=== PATIENT | male | born 1930 | race Caucasian/White ===

== ENCOUNTER 2017-06-16 13:18 | Emergency (ER) | payer MEDICARE, OTHER ==
[2017-06-16] MEDS ORDERED: Haloperidol 1 MG Tab PO ONE (13:59)
[2017-06-16] MEDS ORDERED: LORazepam 1 MG Tab PO ONE (14:01)
[2017-06-16] MEDS ORDERED: Haloperidol Lactate 5 MG/ML SDV IM ONE ×2 (14:04→18:48)
[2017-06-16] MEDS ORDERED: diphenhydrAMINE 50 MG/ML SDV IM ONE (14:05)
[2017-06-16] MEDS ORDERED: LORazepam 2 MG/ML MDV IVPUSH ONE ×2 (14:05→17:35)
[2017-06-16] MEDS ORDERED: Haloperidol Lactate 5 MG/ML SDV ONE (14:06)
[2017-06-16] MEDS ORDERED: diphenhydrAMINE 50 MG/ML SDV ONE (14:06)
[2017-06-16] MEDS ORDERED: LORazepam 2 MG/ML MDV ONE (14:07)
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
[2017-06-16] MEDS ORDERED: Sodium Chloride 0.9% 10 ML Syringe FLUSH PRN (16:20)
[2017-06-16 16:54] LABS: CHLORIDE,CL 105 mmol/L (98-107); SODIUM,NA 140 mmol/L (136-145)
[2017-06-16 18:56] VITALS: BP 158/67
== END 2017-06-16 19:10 ==
LOC: LL.ED 13:18
DX: F03.91 Unspecified dementia, unspecified severity, with behavioral disturbance (principal); E78.00 Pure hypercholesterolemia, unspecified; I10 Essential (primary) hypertension; Z88.0 Allergy status to penicillin; Z79.899 Other long term (current) drug therapy; Z79.82 Long term (current) use of aspirin
CPT/HCPCS: 36415; 80053; 85025; 96372; 96374; 99285; J1200; J1630; J2060; 99284